=== PATIENT | female | born 1970 | race American Indian/Alaskan Native ===

== ENCOUNTER 2017-10-31 22:32 | Emergency (ER) | payer OTHER ==
[2017-10-31 22:48] VITALS: TEMP 98.7; O2SAT 100
--- NOTE | 2017-10-31 23:21 | ED PDOC ---
Lower Extremity Pain/Injury Time Seen by Provider: 10/31/17 22:35 Chief Complaint (Nursing): Lower Extremity Problem/Injury Chief Complaint (Provider): Lower Extremity Problem/Injury History Per: Patient History/Exam Limitations: no limitations Onset/Duration Of Symptoms: Hrs Current Symptoms Are (Timing): Still Present Additional Complaint(s): Dandre Alfaro is a 47 year old female with a past medical history of kidney stones, hypertension, and seasonal allergies who is presenting to the ED for evaluation of left leg pain and swelling, onset around 6 am today. Patient states that she had been working and upon getting up from a seated position pain became pronounced and she noted the swelling. She reports that she went home and took Tramadol for pain with minimal relief. Patient also states that she developed a fever of 101 and took Ibuprofen. She reports that pain is worse with ambulation and that leg is warm to touch. Patient denies any trauma, injury, or any other medical complaints. PMD: Amado Coello Past Medical History Reviewed: Historical Data, Nursing Documentation, Vital Signs Vital Signs: Last Vital Signs Temp 98.7 F 10/31/17 22:46 Pulse 95 H 10/31/17 22:46 Resp 20 10/31/17 22:46 BP 184/100 H 10/31/17 22:46 Pulse Ox 100 10/31/17 22:46 - Medical History PMH: HTN, Kidney Stones Other PMH: seasonal allergies - Surgical History Surgical History: - Family History Family History: States: Unknown Family Hx - Social History Current smoker - smoking cessation education provided: No Alcohol: None Drugs: Denies - Immunization History Hx Tetanus Toxoid Vaccination: Yes Hx Influenza Vaccination: No Hx Pneumococcal Vaccination: No - Home Medications Home Medications: Ambulatory Orders Medication Instructions Recorded Atenolol 50 mg PO DAILY 06/04/13 Esomeprazole Magnesium [Nexium] 40 mg PO DAILY #12 capsule. 10/01/15 Ondansetron ODT [Zofran ODT] 1 odt PO BID PRN #6 odt 10/01/15 Oxybutynin 25 mg PO DAILY 10/01/15 Vitamin D 50,000 unit PO QWK 10/01/15 Naproxen [Naprosyn] 500 mg PO Q12 #14 tab 11/01/17 traMADol [Ultram] 50 mg PO Q6 PRN #16 tab 11/01/17 - Allergies Allergies/Adverse Reactions: Allergies Allergy/AdvReac Type Severity Reaction Status Date / Time Sulfa (Sulfonamide Allergy ANAPHYLAXIS Verified 10/01/15 09:34 Antibiotics) Review of Systems ROS Statement: Except As Marked, All Systems Reviewed And Found Negative Constitutional: Positive for: Fever Musculoskeletal: Positive for: Leg Pain (and swelling) Physical Exam - Reviewed Nursing Documentation Reviewed: Yes Vital Signs Reviewed: Yes - Physical Exam Appears: Positive for: Well, Non-toxic, No Acute Distress (obese) Head Exam: Positive for: ATRAUMATIC, NORMAL INSPECTION, NORMOCEPHALIC Skin: Positive for: Normal Color, Warm, Dry Back: Positive for: Normal Inspection Extremity: Positive for: Other (Left Lower Extremity: 1+ edema, (+) Homans sign and mild warmth to palpation of calf, (-) erythema). Negative for: Deformity Neurologic/Psych: Positive for: Alert, Oriented. Negative for: Motor/Sensory Deficits - Laboratory Results Result Diagrams: 10/31/17 23:20 10/31/17 23:20 - ECG O2 Sat by Pulse Oximetry: 100 (RA) Pulse Ox Interpretation: Normal Medical Decision Making Medical Decision Making: Time: 23:00 Impression: 47 year old female with left lower extremity pain and fever Plan: --CMP --ED Urine --ED Urine Dipstick --CBC --Toradol 30 mg IV --Blood Culture --US, Duplex left lower extremity Ultrasound: FINDINGS: Deep veins: Unremarkable. No DVT in the visualized common femoral, femoral, proximal deep femoral or popliteal veins. The veins demonstrate normal color flow, are normally compressible, with normal phasic flow and/or augmentation response. Superficial veins: Unremarkable. No thrombus in the visualized great saphenous vein. Soft tissues: A complex Sandoval's cyst is present 2.9 cm x 5.6 cm x 1.5 cm Other findings: None IMPRESSION: 1. Negative for venous thrombosis 2. Complex Sandoval's cyst Armand Wrap applied in emergency room. Upon provider evaluation patient is medically stable, and requires no further treatment in the ED at this time. Patient will be discharged home with Rx for Naproxen and Ultram. Counseling was provided and all questions were answered regarding diagnosis and need for follow up with orthopedist. There is agreement to discharge plan. Return if symptoms persist or worsen. Scribe Attestation: Documented by Lee Ann Ba, acting as a scribe for Vikas Ruffin MD. Provider Scribe Attestation: All medical record entries made by the Scribe were at my direction and personally dictated by me. I have reviewed the chart and agree that the record accurately reflects my personal performance of the history, physical exam, medical decision making, and the department course for this patient. I have also personally directed, reviewed, and agree with the discharge instructions and disposition. Disposition - Clinical Impression Clinical Impression: Sandoval cyst - Patient ED Disposition Is Patient to be Admitted: No - Disposition Referrals: Nolan Curtis III, MD [Staff Provider] - Disposition: Routine/Home Disposition Time: 01:25 Condition: STABLE Prescriptions: Naproxen [Naprosyn] 500 mg PO Q12 #14 tab traMADol [Ultram] 50 mg PO Q6 PRN #16 tab PRN Reason: leg pain Instructions: Sandoval's Cyst Forms: [employer] (Urdu)
[2017-10-31 23:27] LABS: BASO % 0.6 % (0.0-2.0); EOS # 0.1 K/uL (0.0-0.7); EOS % 1.8 % (0.0-4.0); HEMOGLOBIN 12.7 g/dL (12.0-16.0); LYMPH # 1.4 K/uL (1.0-4.3); LYMPH % 18.1 % (20.0-40.0); MEAN CELL VOLUME 78.5 fl (81.0-99.0); MEAN CORPUSCULAR HEMOGLOBIN 25.4 pg (27.0-31.0); MEAN CORPUSCULAR HGB CONC 32.3 g/dL (33.0-37.0); MEAN PLATELET VOLUME 7.9 fl (7.2-11.7); MONO # 0.6 K/uL (0.0-0.8); MONO % 8.3 % (0.0-10.0); NEUT # 5.5 K/uL (1.8-7.0); NEUT % 71.2 % (50.0-75.0); NRBC % 0.1 % (0.0-0.0); RBC 5.02 Mil/uL (3.80-5.20); RED CELL DISTRIBUTION WIDTH 15.4 % (11.5-14.5); WHITE BLOOD COUNT 7.8 K/uL (4.8-10.8)
[2017-10-31 23:37] LABS: ALB/GLOB RATIO 1.3 (1.0-2.1); ALBUMIN 3.8 g/dL (3.5-5.0); ALT/SGPT 29 U/L (9-52); AST/SGOT 18 U/L (14-36); BLOOD UREA NITROGEN 17 mg/dl (7-17); CALCIUM 8.8 mg/dL (8.4-10.2); GFR NON-AFRICAN AMERICAN > 60
[2017-11-01 01:45] VITALS: BP 158/83; PULSE 81; RESP 18
--- NOTE | 2017-11-01 12:02 | US ---
Date of service: 10/31/2017 HISTORY: pain . PRIORS: None. FINDINGS: 2-D, color and duplex Doppler analysis of the lower extremity venous circulation using routine protocol from the femoral veins through the popliteal veins. Venous compressibility: Normal. Flow and augmentation patterns: Normal. Visualized veins upper third of calf: Normal. Sandoval cyst: 1.5 x 5.7 x 3.0 cm. The contents are minimally complex with some nonspecific linear internal echoes identified. IMPRESSION: No evidence of left lower extremity deep venous thrombosis. Left popliteal (Sandoval's) cyst identified. The preliminary findings for this examination were reported by [facility] at 12:30 a.m. on 11/01/2017. There is concurrence of this report with the preliminary findings.
== END 2017-11-01 01:30 | disposition home or self-care (01) ==
LOC: H.ER 22:32
DX: M71.22 Synovial cyst of popliteal space [Baker], left knee (principal); R22.42 Localized swelling, mass and lump, left lower limb; I10 Essential (primary) hypertension
CPT/HCPCS: 80053; 85025; 87040; 93971; 99283; J1885